=== PATIENT | female | born 1955 | race Asian ===

== ENCOUNTER 2017-08-09 18:39 | Emergency (ER) | payer SELFPAY ==
[~2017-08-09] VITALS: Ht 149.9 cm; Wt 45.4 kg
[2017-08-09 18:47] VITALS: BP 159/91
[2017-08-09] MEDS ORDERED: SODIUM CHLORIDE 0.9% 1,000 ML IV ONE (19:00)
[2017-08-09] MEDS ORDERED: MORPHINE SULF INJ 2 MG/ML SYRINGE 1ML IV ONE (19:00)
[2017-08-09] MEDS ORDERED: ONDANSETRON HCL 4 MG/2 ML VIAL IV ONE (19:00)
[2017-08-09 19:39] LABS: Basophils # (auto) 0 uL; Basophils % (auto) 0.4 % (0.0-2.0); Eosinophils # (auto) 0.1 uL; Eosinophils % (auto) 0.7 % (0.0-7.0); Hemoglobin 13.7 g/dL (12.2-16.2); Lymphocytes # (auto) 1.8 uL; Lymphocytes % (auto) 24.7 % (10.0-50.0); Mean Corpuscular Hemoglobin 29.2 pg (28.0-32.0); Mean Corpuscular Hgb Conc. 33.4 g/dL (32.0-36.0); Mean Corpuscular Volume 87.5 fL (80.0-100.0); Mean Platelet Volume 7.5 fL (7.4-10.4); Monocytes # (auto) 0.2 uL; Monocytes % (auto) 3.2 % (0.0-12.0); Neutrophils # (auto) 5.3 uL; Platelet Count (auto) 226 10^3/uL (140-450); Red Cell Distribution Width 13.2 % (11.6-16.0); White Blood Cell 7.5 10^3/uL (4.4-10.8)
[2017-08-09 20:58] LABS: Albumin 3.6 g/dL (3.4-5.0); BUN/Creatinine Ratio 11.7; Bilirubin, Total 0.3 mg/dL (0.2-1.0); Calcium 9.2 mg/dL (8.5-10.1); Potassium 3.6 mmol/L (3.5-5.1); Total Protein 7.5 g/dL (6.4-8.2)
[2017-08-09] MEDS ORDERED: ONDANSETRON ODT 4 MG TAB PO ONE ×2 (21:42→22:00)
== END 2017-08-09 21:56 | disposition left against medical advice (07) ==
LOC: EDBD 18:39 → ER 18:43
DX: T62.91XA Toxic effect of unspecified noxious substance eaten as food, accidental (unintentional), initial encounter (principal); Y92.89 Other specified places as the place of occurrence of the external cause
CPT/HCPCS: 36415; 80053; 83690; 85025; 96361; 96374; 96375; 99284; J2270; J2405; Q0162